=== PATIENT | female | born 1955 | race Two or more races ===

== ENCOUNTER 2020-03-30 05:18 | Day surgery (SDC) | payer OTHER | END 2020-03-30 11:05 | disposition home or self-care (01) | LOC: AMB-ENDOS 05:18 | PROVIDERS: ATTEND Colon & Rectal Surgery | DX: D12.3 Benign neoplasm of transverse colon (principal); K64.1 Second degree hemorrhoids; Z20.828 Contact with and (suspected) exposure to other viral communicable diseases ==

== ENCOUNTER 2021-04-26 07:06 | Day surgery (SDC) | payer OTHER | END 2021-04-26 12:20 | disposition home or self-care (01) | LOC: AMB-ENDOS 07:06 | PROVIDERS: ATTEND Colon & Rectal Surgery | DX: K62.89 Other specified diseases of anus and rectum (principal); K64.1 Second degree hemorrhoids; Z20.822 Contact with and (suspected) exposure to COVID-19 ==